=== PATIENT | male | born 1975 | race Caucasian/White ===

== ENCOUNTER 2018-03-08 20:12 | Emergency (ER) | payer OTHER ==
[2018-03-08 21:03] VITALS: BP 134/72
--- NOTE | 2018-03-08 22:07 | UC ---
Hand/Wrist HPI - HPI Summary HPI Summary: noticed a lump on the dorsum of the left forearm 4 weeks ago today, and comes for assessment because of the duration. No pain, size might be a little increased. Not affecting hand function. - History Of Current Complaint Chief Complaint: UCUpperExtremity Stated Complaint: LFT WRIST COMPLAINT Time Seen by Provider: 03/08/18 21:56 Hx Obtained From: Patient Onset/Duration: Sudden Onset, Lasting Weeks - 4 Severity Initially: Mild Severity Currently: Mild Pain Intensity: 0 Character Of Pain: Unable To Describe Alleviating Factor(s): Nothing Associated Signs And Symptoms: Positive: Negative Related History: Dominant Hand Left - Allergies/Home Medications Allergies/Adverse Reactions: Allergies Allergy/AdvReac Type Severity Reaction Status Date / Time No Known Allergies Allergy Verified 03/08/18 21:01 Home Medications: Home Medications Hyoscyamine TAB* [Anaspaz 0.125 MG TAB*] 1 tab Q6H PRN 03/08/18 [History Confirmed 03/08/18] metFORMIN* [Glucophage 1000 MG TAB *] 1,000 mg BID 03/08/18 [History Confirmed 03/08/18] PMH/Surg Hx/FS Hx/Imm Hx Endocrine History: Diabetes Cardiovascular History: Hypertension - Surgical History Surgical History: None - Family History Known Family History: Positive: Cardiac Disease, Hypertension, Diabetes - Social History Occupation: Student Lives: With Family Alcohol Use: None Substance Use Type: None Smoking Status (MU): Never Smoked Tobacco - Immunization History Most Recent Influenza Vaccination: yes Most Recent Tetanus Shot: UTD Review of Systems Constitutional: Negative Skin: Negative Eyes: Negative ENT: Negative Respiratory: Negative Cardiovascular: Negative Gastrointestinal: Abdominal Pain - has bilateral colicy abdominal pain being assessed by Dr. Marquez. Last scope 2012 with small polyps. Genitourinary: Other - recent cystoscopy. Motor: Negative Neurovascular: Negative Musculoskeletal: Negative Neurological: Negative Psychological: Negative Is Patient Immunocompromised?: No All Other Systems Reviewed And Are Negative: Yes Physical Exam Triage Information Reviewed: Yes Appearance: Well-Appearing, No Pain Distress, Obese Vital Signs: Initial Vital Signs Temp 99.4 F 03/08/18 20:57 Pulse 70 03/08/18 20:57 Resp 16 03/08/18 20:57 BP 134/72 03/08/18 20:57 Pulse Ox 100 03/08/18 20:57 Cardiovascular: Positive: RRR, No Murmur Musculoskeletal: Positive: Strength Intact, ROM Intact - left wrist. Nodule does not change size of character with wrist flexion and extension. Neurological Exam: Normal Psychological Exam: Normal Skin Exam: Other - left forearm dorsal surface with ill defined soft tissue nodule 15 x 20mm, soft, compressible, no erythema or warmth. Consistent with lipoma. Hand/Wrist Course/Dx - Course Course Of Treatment: observe for increase in size. - Differential Dx/Diagnosis Differential Diagnosis/HQI/PQRI: Other - ganglion, lipoma. Provider Diagnoses: lipoma left forearm. Discharge - Sign-Out/Discharge Documenting (check all that apply): Discharge/Admit/Transfer - Discharge Plan Condition: Stable Disposition: HOME Patient Education Materials: Lipoma (ED) Referrals: Ivelisse Marquez MD [Primary Care Provider] - Additional Instructions: At this time, you will continue observation of the 15 x 20mm nodule in the left forearm. This is consistent with a benign lipoma. If tenderness or restricted range of motion in the wrist develop, follow up earlier with Dr. Marquez. - Billing Disposition and Condition Condition: STABLE Disposition: HOME
== END 2018-03-08 22:22 | disposition home or self-care (01) ==
LOC: UCCORT 20:12
DX: D17.22 Benign lipomatous neoplasm of skin and subcutaneous tissue of left arm (principal); R10.9 Unspecified abdominal pain; I10 Essential (primary) hypertension; E11.9 Type 2 diabetes mellitus without complications
CPT/HCPCS: 99211; G0463

== ENCOUNTER 2019-10-29 20:16 | Emergency (ER) | payer OTHER ==
[2019-10-29 20:34] VITALS: BP 148/72
--- NOTE | 2019-10-29 20:43 | UC ---
Respiratory Complaint HPI - HPI Summary HPI Summary: 43 yo male presents with cough. He tells me that for the last 2 weeks he has had a dry cough and post nasal drip. Cough is worse in the morning. Over the last 3-4 days has noticed some frontal sinus pressure and congestion. Has not been taking anything OTC. Denies fever, chills, sore throat, SOB, chest pain, abdominal pain, n/v. - History of Current Complaint Chief Complaint: UCGeneralIllness Stated Complaint: COUGH Time Seen by Provider: 10/29/19 20:43 Hx Obtained From: Patient Onset/Duration: Gradual Onset Severity Initially: Mild Severity Currently: Mild Pain Intensity: 1 Pain Scale Used: 0-10 Numeric - Allergies/Home Medications Allergies/Adverse Reactions: Allergies Allergy/AdvReac Type Severity Reaction Status Date / Time No Known Allergies Allergy Verified 10/29/19 20:34 Home Medications: Home Medications ALPRAZolam TAB* [Xanax TAB*] 0.5 mg PO Q8H PRN 10/29/19 [History Confirmed 10/29] Aspirin 81 mg CHEW TAB* [Aspirin Low Dose TAB*] 81 mg PO DAILY 10/29/19 [ History Confirmed 10/29/19] Hydrochlorothiazide TAB* [Hydrodiuril TAB*] 25 mg PO DAILY 10/29/19 [History Confirmed 10/29/19] Losartan TAB* [Cozaar TAB*] 100 mg PO DAILY 10/29/19 [History Confirmed 10/29/19 ] amLODIPine TAB* [Norvasc 5 mg TAB*] 10 mg PO DAILY 10/29/19 [History Confirmed 10/29/19] PMH/Surg Hx/FS Hx/Imm Hx Endocrine History: Diabetes Cardiovascular History: Hypertension - Surgical History Surgical History: None - Family History Known Family History: Positive: Cardiac Disease, Hypertension, Diabetes - Social History Occupation: Employed Full-time Lives: With Family Alcohol Use: None Substance Use Type: None Smoking Status (MU): Never Smoked Tobacco - Immunization History Most Recent Influenza Vaccination: yes Most Recent Tetanus Shot: UTD Review of Systems All Other Systems Reviewed And Are Negative: No Constitutional: Positive: Negative Skin: Positive: Negative Eyes: Positive: Negative ENT: Positive: Sinus Congestion Respiratory: Positive: Cough Cardiovascular: Positive: Negative Gastrointestinal: Positive: Negative Neurological: Positive: Negative Psychological: Positive: Negative Physical Exam - Summary Physical Exam Summary: GENERAL: NAD. WDWN. No pain distress. SKIN: No rashes, sores, lesions, or open wounds. HEENT: Head: AT/NC Eyes: EOM intact. Conjunctiva clear without inflammation or discharge. Ears: Hearing grossly normal. TMs intact, no bulging, erythema, or edema. Nose: Nasal mucosa pink and moist. NTTP maxillary and frontal sinus. Throat: Posterior oropharynx without exudates, erythema, or tonsillar enlargement. Uvula midline. NECK: Supple. Nontender. No lymphadenopathy. CHEST: CTAB. No r/r/w. No accessory muscle use. Breathing comfortably and in no distress. CV: RRR. Pulses intact. Cap refill <2seconds NEURO: Alert. PSYCH: Age appropriate behavior. Triage Information Reviewed: Yes Vital Signs: Initial Vital Signs Temp 98.8 F 10/29/19 20:30 Pulse 71 10/29/19 20:30 Resp 18 10/29/19 20:30 BP 148/72 10/29/19 20:30 Pulse Ox 100 10/29/19 20:30 Vital Signs Reviewed: Yes Respiratory Course/Dx - Course Course Of Treatment: Suspect acute cough. Discussed viral vs bacterial at this time and pt prefers to try anbx and cough medication - Differential Dx/Diagnosis Provider Diagnosis: Cough Discharge ED - Sign-Out/Discharge Documenting (check all that apply): Patient Departure All imaging exams completed and their final reports reviewed: No Studies - Discharge Plan Condition: Stable Disposition: HOME Prescriptions: Azithromycin TAB* [Zithromax TAB (Z-SHASHA) 250 mg #6 tabs] 2 tab PO .TODAY, THEN 1 DAILY #1 shasha Benzonatate CAP* [Tessalon 100 MG CAP*] 100 mg PO TID PRN #21 cap PRN Reason: Cough Patient Education Materials: Acute Cough (ED) Referrals: Ivelisse Marquez MD [Primary Care Provider] - Additional Instructions: If you develop a fever, shortness of breath, chest pain, new or worsening symptoms - please call your PCP or go to the ED immediately. - Billing Disposition and Condition Condition: STABLE Disposition: Home
== END 2019-10-29 21:04 | disposition home or self-care (01) ==
LOC: UCCORT 20:16
DX: R05 Cough (principal); R09.89 Other specified symptoms and signs involving the circulatory and respiratory systems; J34.89 Other specified disorders of nose and nasal sinuses; E11.9 Type 2 diabetes mellitus without complications; I10 Essential (primary) hypertension
CPT/HCPCS: 99212; G0463